=== PATIENT | female | born 1985 | race Two or more races ===

== ENCOUNTER 2025-03-18 03:28 | Emergency (ER) | payer BC, SELFPAY ==
[2025-03-18 03:29] VITALS: BP 147/99; PULSE 100; RESP 18; TEMP 36.8; O2SAT 96
--- NOTE | 2025-03-18 03:45 | XR_ITS ---
Examination: Toes, right foot 3 views Technique: Toes AP oblique lateral 3 views right foot 3 views Date and time of exam: March 18, 2025 0350 hours INDICATIONS: Injured the foot this morning, foot pain. FINDINGS: Acute fractures proximal phalanges second and third digits, mild separation of fracture fragments second digit Metatarsal tarsal bones intact IMPRESSION: Acute fractures proximal phalanges second and third digits
--- NOTE | 2025-03-18 03:45 | EDNOTE_ITS ---
Lower Extremity Injury RME/HPI General Chief Complaint: Ankle/Foot Injury Stated Complaint: RIGHT TOE INJURY Time Seen by Provider: 03/18/25 03:31 Arrival date/time: 03/18/25 03:28 40 year old female present to emergency room with c/o of right toe injury tonight. LOCATION: Toe SEVERITY: Symptoms are described as being severe with limitations on activities of daily living QUALITY: Symptoms are described as being dull or achy CONTEXT: stubbed toe DURATION/TIMING: The symptoms started approximately [employer] SYMPTOMS: The patient is unable to identify any other associated symptoms. MODIFYING FACTORS: The patient is unable to identify any alleviating or aggravating symptoms. PERTINENT ROS: no fevers, no headache, no neck or chest pain, no unexplained nausea or vomiting, no focal neurological deficits REVIEW OF SYSTEMS: See History of Present Illness - with the exception of those mentioned in the history of present illness, all other systems reviewed and reported as negative GENERAL: In general the patient is awake, interactive, in an emergency department gurney. HEAD/EYES/EARS/NOSE/THROAT: normo-cephalic, atraumatic, mucus membranes are moist, anicteric, palpebral conjunctiva is pink, trachea is midline. NEUROLOGICAL: cranio-facial features are symmetric, moves all four extremities equally without obvious limitations or weakness. EXTREMITY: right 3rd MTP mild swelling and tenderness, no tenderness to palpation over the long bones or large joints of the bilateral upper and lower extremities, no joint swelling, no joint erythema, no signs of trauma, no unilateral leg swelling and no peripheral edema. SKIN: warm, dry, well-perfused, no jaundice, no rash, no telangiectasias or petechia. PSYCH: calm, cooperative, no evidence of psychosis or agitation Related Data Previous Rx's ?Medication ?Instructions ?Recorded ibuprofen 800 mg tablet 800 mg PO Q8H #30 tabs 11/11 hydrocodone 5 mg-acetaminophen 325 1 tab PO Q8H PRN pa in #14 tabs 03/18/25 mg tablet Allergies Allergy/AdvReac Type Severity Reaction Status Date / Time No Known Allergies Allergy Unknown Verified 03/18/25 03:29 Course Course Course Narrative: xray to rule out fx, norco for pain control Quality Measures none Orders Category Date Time Status XR toe RT min 2V Stat Exams 03/18/25 03:45 Taken HYDROcodone*/APAP 5/325 [[place] 5/325] Med 03/18/25 04:12 Once 1 tab PO X1 ONE Vital Signs Vital signs: Vital Signs Temperature 98.2 F 03/18/25 03:29 Pulse Rate 100 03/18/25 03:29 Respiratory Rate 18 03/18/25 03:29 Blood Pressure 147/99 H 03/18/25 03:29 Pulse Oximetry (%) 96 03/18/25 03:29 Oxygen Delivery Method Room Air 03/18/25 03:29 Extremity Injury, Lower Patient data External records reviewed:: [facility] previous records Clinical information provided by:: patient Social determinants that could affect healthcare access:: none Patient has the following chronic illnesses:: n/a How is presenting disease/condition affected by chronic disease/condition?: no chronic disease Evaluation data The following diagnostics were reviewed and interpreted by me:: radiology exam(s) Lab and/or radiology exams considered but not ordered:: na Interpretation Summary: xray: + toe fx multi Medications / Prescriptions Medications or Prescriptions considered but not ordered:: n/a Medication administrations:: Medication Administration History Hydrocodone Bitart/Acetaminophen (Hydrocodone/Apap 5/325 Tablet) 1 tab PO X1 ONE Stop: 03/18/25 04:13 as stated above Consultations Consultation(s) initiated? (list below): No Diagnosis Extremity Injury, Lower Differential Diagnosis: fracture of toe and other (strain/sprain) Most likely diagnosis given after review of the tests above:: toe fracture Admission Indicated Admission indicated?: not indicated Admission Request Was there a request for admission?: No Disposition Plan Disposition Plan: Discharge Discharge Attestation Discharge Attestation: The patient and all family members were given an opportunity to ask questions and understood the discharge instructions. Discharge instructions specifically effects, indications for sooner follow up or return to the emergency department, and the expected course of current diagnosis. Patient condition: Stable Discharge Plan Plan Patient Disposition: HOME (Self Care) Prescriptions/Referrals Prescriptions/Med Rec: New hydrocodone-acetaminophen 5-325 mg tablet 1 tab PO Q8H MDD 3 PRN (Reason: pain) Qty: 14 0RF No Action ibuprofen 800 mg tablet 800 mg PO Q8H Qty: 30 0RF Referrals: Corey Hernandez MD [Primary Care Provider] - In 1 week Problem List Clinical Impression: Fracture of toe Patient/Caregiver Discharge Instructions Education Materials: ED Fracture, Toe, Closed Print Language: Kiswahili Stand Alone Forms: [facility] Award Info., Patient Portal Info Letter
[2025-03-18] MEDS: HYDROcodone/APAP 5/325 TABLET 1 TAB PO (04:36)
[2025-03-18 04:53] VITALS: RESP 18
== END 2025-03-18 04:54 | disposition home or self-care (01) ==
PROVIDERS: Emergency Provider Emergency Medicine; PCP Family Medicine
DX: S92.511A Displaced fracture of proximal phalanx of right lesser toe(s), initial encounter for closed fracture (principal); W22.8XXA Striking against or struck by other objects, initial encounter
CPT/HCPCS: 73660; 99283; A9270

== ENCOUNTER → 2025-08-30 | Outpatient (CLI) | payer BC, SELFPAY ==
[2025-08-30 10:39] LABS: Basophils # (Auto) 0.0 Thou/mm3 (0.0-0.2); Basophils % (Auto) 0 % (0-2.5); Eosinophils # (Auto) 0.2 Thou/mm3 (0.0-0.5); Eosinophils % (Auto) 3 % (0-10); Hematocrit 39.6 % (36.0-46.0); Hemoglobin 12.9 g/dL (12.0-16.0); Immature Granulocytes Auto 0.01 Thou/mm3 (0.00-0.00); Lymphocytes # (Auto) 1.4 Thou/mm3 (1.0-4.8); Lymphocytes % (Auto) 28 % (10-50); Mean Corpuscular HGB Conc 32.6 g/dl (31.0-37.0); Mean Corpuscular Hemoglobin 26.4 pg (25.0-35.0); Mean Corpuscular Volume 81 fL (80-100); Monocytes # (Auto) 0.3 Thou/mm3 (0.0-0.8); Monocytes % (Auto) 6 % (0-12); Neutrophils # (Auto) 3.3 Thou/mm3 (1.8-7.7); Neutrophils % (Auto) 62 % (37-80); Nucleated Red Blood Cell # 0.00 Thou/mm3 (0.00-0.00); Nucleated Red Blood Cell % 0 /100 WBC (0); Platelet Count 256 Thou/mm3 (140-440); RDW Standard Deviation 39.9 fL (36.4-46.3); Red Blood Count 4.88 Miln/mm3 (4.00-5.20); White Blood Count 5.2 Thou/mm3 (3.6-11.0)
[2025-08-30 10:51] LABS: Glucose Estimated Average 105 mg/dL (80-131); Hemoglobin A1C 5.3 % Hgb (4.8-6.0)
[2025-08-30 11:05] LABS: Alanine Aminotransferase 20 U/L (10-49); Albumin, Serum 4.5 gm/dL (3.5-5.0); Albumin/Globulin Ratio 2.0 (1.2-2.2); Alkaline Phosphatase 73 U/L (46-116); Anion Gap 9 (7-16); Aspartate Amino Transferase 26 U/L (0-34); BUN/Creatinine Ratio 11 Ratio (12-20); Bilirubin,Total 0.6 mg/dL (0.3-1.2); Blood Urea Nitrogen 10 mg/dL (9-23); Calcium 9.2 mg/dL (8.3-10.6); Calcium (Corrected) 9.2 mg/dL (8.5-10.1); Carbon Dioxide 27.9 mMol/L (20.0-31.0); Cardiac Risk Estimate 3.1 RATIO (3.7-5.6); Chloride 106 mMol/L (98-107); Cholesterol 170 mg/dL (132-200); Creatinine (Component) 0.9 mg/dL (0.6-1.3); Free T4 (Free Thyroxine) 1.15 ng/dL (0.89-1.76); Globulin 2.3 gm/dL (2.3-3.5); Glucose 96 mg/dL (74-106); HDL Cholesterol 55 mg/dL (40-60); LDL Cholesterol,Calculated 92 mg/dL (0-130); Osmolality,Calculated 283 (275-295); Potassium 4.0 mMol/L (3.4-5.1); Sodium 143 mMol/L (136-145); Thyroid Stimulating Hormone 1.83 uIU/mL (0.55-4.78); Total Protein 6.8 gm/dL (5.7-8.2); Triglycerides 115 mg/dL (30-150); Vitamin D 25 Hydroxy Total 31.9 ng/mL (7.3-40.2); eGFR > 60 See Note
== END | disposition home or self-care (01) ==
LOC: COPL 09:21
PROVIDERS: PCP Nurse Practitioner Primary Care
DX: Z71.3 Dietary counseling and surveillance (principal); Z76.89 Persons encountering health services in other specified circumstances
CPT/HCPCS: 36415; 80053; 80061; 82306; 83036; 84439; 84443; 85025